=== PATIENT | female | born 1965 | race Caucasian/White ===

== ENCOUNTER 2016-12-05 13:59 | Emergency (ER) | payer OTHER ==
[2016-12-05] MEDS ORDERED: Ipratropium Neb 0.5 mg/2.5 mL UD HHN ONE ×2 (14:28→15:38)
[2016-12-05] MEDS ORDERED: Albuterol Nebulizer 2.5mg/3mL HHN ONE ×2 (14:28→15:38)
--- NOTE | 2016-12-05 14:36 | ED Physician Chart ---
Chief Complaint/HPI - Patient Information Date Seen:: 12/05/16 Time Seen:: 14:20 Chief Complaint:: cough History of Present Illness:: has had cough productive of a slight amount of yellow sputum for two weeks. Clint warm; temperature not taken. Had slight chills. Has noted wheezing when supine. Allergies:: Allergies Allergy/AdvReac Type Severity Reaction Status Date / Time No Known Allergies Allergy Verified 12/05/16 14:25 Vitals:: Vital Signs - 8 hr 12/05/16 14:21 Temp 97.8 F HR 92 RR 16 BP 138/97 O2 Sat % 95 Historian:: Patient Review:: Nurse's Note Reviewed Review of Systems - Review of Systems General/Constitutional: Chills Skin: No skin lesions Head: No headache Eyes: No loss of vision ENT: No earache, No sore throat Neck: No neck pain Cardio Vascular: No chest pain Pulmonary: Cough, Sputum GI: No nausea, No vomiting G/U: No dysuria Musculoskeletal: No bone or joint pain Endocrine: No polyuria, No polydipsia Psychiatric: No prior psych history Hematopoietic: No bruising Allergic/Immuno: No urticaria Neurological: No syncope, No focal symptoms Past Medical History - Past Medical History Past Medical History: No significant medical hx, HTN, Other (has in the past used an inhaler) Family History: Other (doesn't know; is adopted) Social History: Smoker, Alcohol (smokes 1/2 PPD and drinks 6 beers per day) Surgical History: Psychiatricy History: None Medication: Reviewed Family Medical History - Family Member Mother History Unknown: Yes Ethnicity: Living Status: Labs/Radiology/EKG Results - Radiology Results Results: CXR: possible COPD; no infiltrate Assessment - Assessment General Assessment: Patient felt much better after HHN; chest was clear to auscultation after HHN ED Septic Shock - . Is Septic Shock (SBP<90, OR Lactate>4 mmol\L) present?: No - <6hrs of presentation: Vital Signs: Vital Signs - 8 hr 12/05/16 14:21 Temp 97.8 F HR 92 RR 16 BP 138/97 O2 Sat % 95 Reassessment (Disposition) - Reassessment Reassessment Condition:: Improved - Diagnosis Diagnosis:: Acute viral syndrome; COPD - Aftercare/Follow up Instructions Aftercare/Follow-Up Instructions:: Refer to Discharge Instructions Medication Prescribed:: albuterol MDI Sig 2 puffs Q 4 hr PRN - Patient Disposition Discharge/Transfer:: Home Condition at Disposition:: Stable, Improved ED Discharge Plan - Patient Disposition Admit/Discharge/Transfer: PT DISCHARGED HOME Condition at Disposition: Improved Instructions: Viral Infections
--- NOTE | 2016-12-05 15:30 | Diagnostic Imaging Report ---
CHEST X-RAY: 2 views INDICATION: Cough COMPARISON: None FINDINGS: Hyperinflated lungs are seen with increased bibasilar lung markings. No focal consolidation or pleural effusions. Heart size is normal. Atherosclerosis is noted. Degenerative changes of the spine are noted. IMPRESSION: Hyperinflated lungs with increased bibasilar lung markings most likely due to chronic etiology. Underlying infiltrate of lung bases are considered less likely. No focal consolidation identified. Please correlate clinically. Possible COPD.
== END 2016-12-05 16:00 | disposition home or self-care (01) ==
LOC: ER 13:59
DX: J44.9 Chronic obstructive pulmonary disease, unspecified (principal); B34.9 Viral infection, unspecified; I10 Essential (primary) hypertension; F17.200 Nicotine dependence, unspecified, uncomplicated
CPT/HCPCS: 71020-TC; 90779; 94640; J7613; Z7502

== ENCOUNTER 2018-04-02 15:20 | Emergency (ER) | payer MEDICAID, OTHER ==
--- NOTE | 2018-04-02 16:20 | ED Physician Chart ---
ED Chief Complaint/HPI - Patient Information Date Seen:: 04/02/18 Time Seen:: 16:00 Chief Complaint:: dizziness History of Present Illness:: Patient's had dizziness for 3 days. She notices the dizziness more when she bends forward and then assumes the upright position again. She's also been anorexic but had no vomiting or diarrhea. She has noted slight yellow conjunctival discharge in the mornings and has a cough primarily in the mornings. Patient had pre-op lab tests done about 2 weeks ago in preparation for removal of a subcutaneous cyst from her back. Allergies:: Allergies Allergy/AdvReac Type Severity Reaction Status Date / Time No Known Allergies Allergy Verified 12/05/16 14:25 Vitals:: Vital Signs - 8 hr 04/02/18 04/02/18 15:44 16:09 Temp 97.9 F 98 F HR 81 104 RR 16 16 BP 135/90 135/90 O2 Sat % 99 97 Historian:: Patient Review:: Nurse's Note Reviewed ED Review of Systems - Review of Systems General/Constitutional: No fever, No chills, No weight loss, No weakness, No diaphoresis, No edema, No loss of appetite Skin: No skin lesions, No rash, No bruising Head: No headache, No light-headedness Eyes: No loss of vision, No pain, No diplopia, Other (conjunctival discharge) ENT: No earache, No nasal drainage, No sore throat, No tinnitus Neck: No neck pain, No swelling, No thyromegaly, No stiffness, No mass noted Cardio Vascular: No chest pain, No palpitations, No PND, No orthopnea, No edema Pulmonary: No SOB, No cough, No sputum, No wheezing GI: No nausea, No vomiting, No diarrhea, No pain, No melena, No hematochezia, No constipation, No hematemesis G/U: No dysuria, No frequency, No hematuria Musculoskeletal: No bone or joint pain, No back pain, No muscle pain Endocrine: No polyuria, No polydipsia Psychiatric: No prior psych history, No depression, No anxiety, No suicidal ideation Hematopoietic: No bruising, No lymphadenopathy Allergic/Immuno: No urticaria, No angioedema Neurological: No syncope, No focal symptoms, No weakness, No paresthesia, No headache, No seizure, Dizziness, No confusion, No vertigo Family Medical History - Family Member Mother History Unknown: Yes Ethnicity: Living Status: Still Living ED Physical Exam - Physical Examination General/Constitutional: Awake, Well-developed, well-nourished, Alert, No distress, GCS 15, Non-toxic appearing, Ambulatory Head: Atraumatic Eyes: PERRL, EOMI Other Eyes comments:: There is one out of 4 bilateral conjunctival erythema; the optic discs are sharp ; there is minimal vertical nystagmus with upward gaze. Skin: No rash, No ecchymosis, Well hydrated, No lymphadenopathy Other Skin comments:: 2 cm in diameter about 5 mm raised subcutaneous cyst just to the left of the midline level of about the fourth thoracic vertebra. ENMT: External ears, nose nl, Nasal exam nl, Lips, teeth, gums nl Neck: Nontender, Full ROM w/o pain, No JVD, No nuchal rigidity, No bruit, No mass, No stridor Respiratory: Nl effort/Exclusion, Clear to Auscultation, No Wheeze/Rhonchi/Rales Cardio Vascular: RRR, No murmur, gallop, rubs, NL S1 S2 GI: No tenderness/rebounding/guarding, No organomegaly, No hernia, Normal BS's, Nondistended, No mass/bruits, No McBurney tenderness : No CVA tenderness Extremities: No tenderness or effusion, Full ROM, normal strength in all extremities, No edema, Normal digits & nails Neuro/Psych: Alert/oriented, DTR's symmetric, Normal sensory exam, Normal motor strength, Judgement/insight normal, Mood normal, Normal gait, No focal deficits Misc: Normal back, No paraspinal tenderness ED Assessment - Assessment General Assessment: I gave the patient a choice of doing lab tests and giving her IV fluids but she stated that as mentioned above she had recent laboratory tests which came back normal and she chose medication only which will be 25 mg of Antivert orally. ED Septic Shock - <6hrs of presentation: Vital Signs: Vital Signs - 8 hr 04/02/18 04/02/18 15:44 16:09 Temp 97.9 F 98 F HR 81 104 RR 16 16 BP 135/90 135/90 O2 Sat % 99 97 ED Reassessment (Disposition) - Reassessment Reassessment:: At 1500 after receiving Antivert 25 mg orally patient felt less dizzy. Reassessment Condition:: Improved - Diagnosis Diagnosis:: Benign positional vertigo - Aftercare/Follow up Instructions Medication Prescribed:: Antivert 25 mg #20 take 1 4 times a day and Sulamyd 10% ophthalmic to apply 2 drops both eyes every 2 hours while awake. ED Discharge Plan - Patient Disposition Instructions: Vertigo
== END 2018-04-02 17:10 | disposition home or self-care (01) ==
LOC: ER 15:20
DX: H81.10 Benign paroxysmal vertigo, unspecified ear (principal)
CPT/HCPCS: Z7502

== ENCOUNTER 2018-05-03 13:16 | Emergency (ER) | payer MEDICAID ==
--- NOTE | 2018-05-03 14:04 | ED Physician Chart ---
Addendum entered and electronically signed by Neeraj Thomas 05/03/18 14:58: ED Reassessment (Disposition) - Reassessment Reassessment Condition:: Improved - Diagnosis Diagnosis:: lt ankle fx tibial bone ap splint placed under my direction pt stable refused admission spoke to DR BROWN WHO WANTED HER TRANSFERED PT HAS DX DIZZINESS FREQENT FALLS ETOH ABUSE AND HYPOKALEMIA SHE WAS GIVEN [address] HEAD FACIAL PENDING PT TO SIGN AMA - Patient Disposition Discharge/Transfer:: Against Medical Advice Original Note: ED Chief Complaint/HPI - Patient Information Date Seen:: 05/03/18 Time Seen:: 13:40 Chief Complaint:: fall lt ankle pain History of Present Illness:: 52 yr old female who tripped fell on lt ankle last wk here for swelling pain pt has known dizziness and is on antivert Allergies:: Allergies Allergy/AdvReac Type Severity Reaction Status Date / Time No Known Allergies Allergy Verified 12/05/16 14:25 Vitals:: Vital Signs - 8 hr 05/03/18 13:20 Temp 97.9 F HR 102 RR 20 BP 110/77 O2 Sat % 94 Historian:: Patient, Family Member () ED Review of Systems - Review of Systems General/Constitutional: No fever, No chills, No weight loss, No weakness, No diaphoresis, No edema, No loss of appetite Skin: No skin lesions, No rash, No bruising Head: No headache, No light-headedness Eyes: No loss of vision, No pain, No diplopia ENT: No earache, No nasal drainage, No sore throat, No tinnitus Neck: No neck pain, No swelling, No thyromegaly, No stiffness, No mass noted Cardio Vascular: No chest pain, No palpitations, No PND, No orthopnea, No edema Pulmonary: No SOB, No cough, No sputum, No wheezing GI: No nausea, No vomiting, No diarrhea, No pain, No melena, No hematochezia, No constipation, No hematemesis G/U: No dysuria, No frequency, No hematuria Musculoskeletal: Bone or joint pain, Muscle pain Endocrine: No polyuria, No polydipsia Psychiatric: No prior psych history, No depression, No anxiety, No suicidal ideation Hematopoietic: No bruising, No lymphadenopathy Allergic/Immuno: No urticaria, No angioedema Neurological: Dizziness ED Past Medical History - Past Medical History Past Medical History: No significant medical hx Family Medical History - Family Member Mother History Unknown: Yes Ethnicity: Living Status: Still Living ED Physical Exam - Physical Examination General/Constitutional: Awake, Well-developed, well-nourished, Alert, No distress, GCS 15, Non-toxic appearing, Ambulatory Head: Atraumatic Eyes: Lids, conjuctiva normal, PERRL, EOMI Skin: Nl inspection, No rash, No skin lesions, No ecchymosis, Well hydrated, No lymphadenopathy ENMT: External ears, nose nl, Nasal exam nl, Lips, teeth, gums nl Neck: Nontender, Full ROM w/o pain, No JVD, No nuchal rigidity, No bruit, No mass, No stridor Respiratory: Nl effort/Exclusion, Clear to Auscultation, No Wheeze/Rhonchi/Rales Cardio Vascular: RRR, No murmur, gallop, rubs, NL S1 S2 GI: No tenderness/rebounding/guarding, No organomegaly, No hernia, Normal BS's, Nondistended, No mass/bruits, No McBurney tenderness : No CVA tenderness Extremities: No tenderness or effusion, Full ROM, normal strength in all extremities, No edema, Normal digits & nails Other Extremities comments:: mild swelling tenderness lt ankle Neuro/Psych: Alert/oriented, DTR's symmetric, Judgement/insight normal, Mood normal Misc: No paraspinal tenderness ED Assessment - Assessment General Assessment: lt ankle pain swelling ED Septic Shock - . Is Septic Shock (SBP<90, OR Lactate>4 mmol\L) present?: No - <6hrs of presentation: Vital Signs: Vital Signs - 8 hr 05/03/18 13:20 Temp 97.9 F HR 102 RR 20 BP 110/77 O2 Sat % 94 ED Reassessment (Disposition) - Diagnosis Diagnosis:: lt ankle pain - Patient Disposition Discharge/Transfer:: Home Condition at Disposition:: Stable
[2018-05-03] MEDS ORDERED: Sodium Chloride 0.9% 1,000 ML IV ONE (14:06)
[2018-05-03 14:27] LABS: BASOPHILE ABSOLUTE 0.1 Th/cumm (0-0.2); EOSINOPHILE ABSOLUTE 0.2 Th/cmm (0.1-0.4); HEMATOCRIT 35.2 % (41.0-60); HEMOGLOBIN 12.5 gm/dL (12-16); LYMPHOCYTE ABSOLUTE 1.4 Th/cmm (1.5-3.0); MEAN CORPUSCULAR HEMOGLOBIN 38.3 pg (27.0-31.0); MEAN CORPUSCULAR HGB CONC 35.6 pg (28.0-36.0); MEAN PLATELET VOLUME 7.9 fl; NEUTROPHILE ABSOLUTE 4.2 Th/cmm (1.8-8.0); PLATELET COUNT 136 Th/cmm (150-400); RED BLOOD COUNT 3.27 Mil/cmm (3.80-5.10); RED CELL DISTRIBUTION WIDTH 13.1 % (11.5-20.0); WHITE BLOOD COUNT 6.9 Th/cmm (4.8-10.8)
[2018-05-03 14:28] LABS: % BASOPHILS 0.8 % (0.0-2.0); % EOSINOPHILS 2.3 % (0.0-5.0); % LYMPHOCYTES 20.4 % (20.0-50.0); % NEUTROPHILS 61.5 % (40.0-80.0); MEAN CELL VOLUME 107.6 fl (81-100)
[2018-05-03 14:46] LABS: ALB/GLOB RATIO 1.6 (1.0-1.8); ALBUMIN 4.1 gm/dL (3.7-5.3); ALKALINE PHOSPHATASE 85 U/L (34-104); ANION GAP 15.7 (7.0-16.0); BILIRUBIN,TOTAL 0.9 mg/dL (0.3-1.0); BUN - UREA NITROGEN 7 mg/dL (7-25); CALCIUM SERUM 9.1 mg/dL (8.6-10.3); CARBON DIOXIDE 24.2 mEq/L (21.0-31.0); CHLORIDE 99 mEq/L (98-107); CREATININE - SERUM 0.5 mg/dL (0.6-1.2); GFR AFRICAN-AMERICAN > 60.0 ml/min (>90); GFR NON AFRICAN-AMERICAN > 60.0 ml/min; GLUCOSE 134 mg/dL (70-105); SGOT 70 U/L (13-39); SGPT/ALT 46 U/L (7-52); SODIUM SERUM 136 mEq/L (136-145); TOTAL PROTEIN,SERUM 6.7 gm/dL (6.0-8.3)
[2018-05-03 14:48] LABS: POTASSIUM SERUM 2.9 mEq/L (3.5-5.1)
[2018-05-03] MEDS ORDERED: Potassium Chloride 20 mEq ER Tab PO ONE (14:53)
--- NOTE | 2018-05-04 09:01 | Diagnostic Imaging Report ---
Head CT without intravenous contrast Indication: Dizziness Comparison: None Technique: Axial images were obtained from the vertex to the skull base without IV contrast. Coronal reconstructions were made. Total DLP: 565, CTDI38 FINDINGS: Images of the brain obtained without contrast demonstrate no acute hemorrhage. No mass lesions identified. The ventricles and basal cisterns are patent. The priutt-white matter differentiation is preserved. There is no mass effect or midline shift. Atrophy is noted. No skull fractures identified. No soft tissue swelling. The paranasal sinuses are clear. IMPRESSION: No acute intracranial abnormality. Atrophy.
--- NOTE | 2018-05-04 09:05 | Diagnostic Imaging Report ---
Left ankle 3 views Indication: Fall Comparison: none Findings: There is an oblique fracture of the distal fibular shaft with minimal displacement. No small avulsion fracture of the lateral aspect of the distal tibia and syndesmotic ligamentous tear in this region cannot be excluded. No dislocation. There is soft tissue swelling surrounding the ankle greatest laterally. Small plantar calcaneal spur is noted. Impression: Oblique fracture distal fibular shaft with minimal displacement. Note, small avulsion fracture seen along the lateral aspect of the distal tibia cannot be excluded. There is probable underlying syndesmotic ligament tear. MRI is suggested for further assessment of these findings. Surrounding soft tissue swelling, greatest laterally. In the setting of trauma, if clinical symptoms persist and there is continued concern for an occult fracture, follow up exams in 5-7 days is suggested.
--- NOTE | 2018-05-04 09:12 | Diagnostic Imaging Report ---
CT facial bones without IV contrast History: Fall Comparison: head performed the same day Technique/procedure: Axial images of the facial bones were obtained without IV contrast. Reconstructions were made. Total DLP 565 CTDI 38.2 Findings: Dental hardware limits the exam due to streak artifact. There appears to been an old right orbital floor fracture. No acute orbital floor fracture identified. The globes and intraconal compartments are intact. Mild degenerative changes of the bilateral TMJ joints are noted. The zygomatic arches are intact. There is mild soft tissue swelling of the left premaxillary region. The nasal bones are intact. IMPRESSION: Mild soft tissue swelling of the left premaxillary region. No evidence of acute fracture. Old right orbital floor fracture.
--- NOTE | 2018-05-04 09:16 | Diagnostic Imaging Report ---
CT cervical spine without IV contrast HISTORY: Trauma COMPARISON: None Technique: Axial images were obtained from the skull base to the upper thoracic spine without IV contrast. Multiplanar reconstructions were made. Total DLP: 277, CTDI14.3 FINDINGS: Images of the cervical spine obtained without contrast demonstrate no evidence of acute fracture or subluxation. There is reversal of the cervical lordosis. Moderate degenerative changes are noted with moderate disc space loss of height at C5/C6. Marginal disc osteophyte spurs are noted including a 2 mm posterior disc osteophyte complex at C5/C6 and vacuum phenomenon at this level with small pocket of gas seen posterior to the C6 vertebral body likely due to vacuum phenomena. No prevertebral soft tissue swelling. Atherosclerosis is noted. IMPRESSION: No evidence of acute fracture or subluxation. Moderate degenerative changes greatest at C5/C6 with vacuum phenomenon and small pocket of gas located posterior to the C6 vertebral body, likely extradural and due to vacuum phenomena. Atherosclerotic vascular disease.
== END 2018-05-03 16:26 | disposition home or self-care (01) ==
LOC: ER 13:16
DX: S82.202A Unspecified fracture of shaft of left tibia, initial encounter for closed fracture (principal); F10.10 Alcohol abuse, uncomplicated; E87.6 Hypokalemia; R42 Dizziness and giddiness; W01.0XXA Fall on same level from slipping, tripping and stumbling without subsequent striking against object, initial encounter; Y93.89 Activity, other specified; Y92.89 Other specified places as the place of occurrence of the external cause; Y99.8 Other external cause status
CPT/HCPCS: 36415-UA; 70450-TC; 70486-TC; 72125-TC; 73610-TC; 80053-TC; 85025-TC; J7030